=== PATIENT | female | born 1985 | race American Indian/Alaskan Native ===

== ENCOUNTER 2019-06-17 16:55 | Emergency (ER) | payer OTHER ==
[2019-06-17] MEDS ORDERED: ACETAMINOPHEN 500 MG TAB PO ONE (18:42)
[2019-06-17] MEDS ORDERED: AMOXICILLIN/K CLAV 875/125MG TAB PO ONE (18:42)
--- NOTE | 2019-06-17 19:43 | Emergency Department Report ---
ED General Adult HPI - General Chief complaint: Dental/Oral Stated complaint: TOOTHACHE Source: patient Mode of arrival: Ambulatory Limitations: No Limitations - History of Present Illness Initial comments: Patient is a 34 yo AA female who is approximately 33 weeks gestation who presents to the ED with c/o acute onset persistent severe painful swollen right maxillary gums and premolar and molar toothache for the last 3 days. Patient denies dyspnea, fever, chills, cough, sore throat, dizziness, nausea, vomiting, chest pain, abdominal pain or vaginal bleeding. MD Complaint: right maxillary swollen gums; painful maxillary premolar/molar toothache -: Sudden, days(s) (3) Location: mouth Radiation: non-radiation Severity scale (0 -10): 7 Quality: aching, sharp Consistency: constant Improves with: none Worsens with: none Associated Symptoms: denies other symptoms, loss of appetite. denies: confusion, chest pain, cough, fever/chills, headaches, malaise, seizure Treatments Prior to Arrival: none - Related Data Previous Rx's Medication Instructions Recorded Last Taken Type Acetaminophen/Codeine [Tylenol 1 tab PO Q6H PRN #12 tab 06/17/19 Unknown Rx /Codeine # 3 tab] Clindamycin [Clindamycin CAP] 300 mg PO Q8HR #60 capsule 06/17/19 Unknown Rx Allergies Allergy/AdvReac Type Severity Reaction Status Date / Time No Known Allergies Allergy Verified 06/17/19 16:57 ED Review of Systems ROS: Stated complaint: TOOTHACHE Other details as noted in HPI Constitutional: denies: chills, fever Eyes: denies: eye pain, eye discharge, vision change ENT: dental pain, congestion, other (swollen gums). denies: ear pain, throat pain Respiratory: denies: cough, shortness of breath, wheezing Cardiovascular: denies: chest pain, palpitations, dyspnea on exertion, syncope Endocrine: no symptoms reported Gastrointestinal: denies: abdominal pain, nausea, diarrhea Genitourinary: denies: urgency, dysuria, discharge Musculoskeletal: denies: back pain, joint swelling, arthralgia Skin: denies: rash, lesions Neurological: denies: headache, weakness, paresthesias Psychiatric: denies: anxiety, depression Hematological/Lymphatic: denies: easy bleeding, easy bruising ED Past Medical Hx - Past Medical History Previous Medical History?: No - Surgical History Past Surgical History?: No - Social History Smoking Status: Never Smoker Substance Use Type: None - Medications Home Medications: Home Medications Medication Instructions Recorded Confirmed Last Taken Type Acetaminophen/Codeine [Tylenol 1 tab PO Q6H PRN #12 tab 06/17/19 Unknown Rx /Codeine # 3 tab] Clindamycin [Clindamycin CAP] 300 mg PO Q8HR #60 capsule 06/17/19 Unknown Rx ED Physical Exam - General Limitations: No Limitations General appearance: alert, in no apparent distress - Head Head exam: Present: atraumatic, normocephalic, normal inspection - Eye Eye exam: Present: normal appearance. Absent: PERRL, EOMI, scleral icterus, periorbital swelling, periorbital tenderness Pupils: Present: normal accommodation - ENT ENT exam: Present: mucous membranes moist, TM's normal bilaterally, normal external ear exam, other (Swollen severely tender right maxillary gums with severe premolar and molar teeth tenderness) - Neck Neck exam: Present: normal inspection, full ROM, lymphadenopathy. Absent: tenderness - Respiratory Respiratory exam: Present: normal lung sounds bilaterally. Absent: respiratory distress, wheezes, rales, stridor, chest wall tenderness, accessory muscle use - Cardiovascular Cardiovascular Exam: Present: normal rhythm, tachycardia, normal heart sounds. Absent: systolic murmur, diastolic murmur, rubs, gallop - GI/Abdominal GI/Abdominal exam: Present: soft, normal bowel sounds. Absent: tenderness, guarding, rebound, hyperactive bowel sounds, hypoactive bowel sounds, mass - Extremities Exam Extremities exam: Present: normal inspection, full ROM, normal capillary refill - Back Exam Back exam: Present: normal inspection, full ROM. Absent: tenderness, CVA ten derness (L), muscle spasm, paraspinal tenderness - Neurological Exam Neurological exam: Present: alert, oriented X3, CN II-XII intact, normal gait, reflexes normal - Psychiatric Psychiatric exam: Present: normal affect, normal mood - Skin Skin exam: Present: warm, dry, intact, normal color. Absent: rash ED Course Vital Signs 06/17/19 06/17/19 17:49 20:02 Temperature 99 F 98.5 F Pulse Rate 114 H 102 H Respiratory 16 16 Rate Blood Pressure 146/67 135/89 [Left] O2 Sat by Pulse 97 97 Oximetry - Reevaluation(s) Reevaluation #1: 11/04/19 19:50 Patient is alert and oriented x 3 and is in no acute distress, but tachycardic in triage. Patient treated for pain and also given oral antibiotics in the ED. Patient is 33 weeks gestation. Patient discharged home on pain medications and oral antibiotics and advised to follow up with her PCP or dentist in 7-10 days for reevaluation, or return to the ED immediately if symptoms get worse. ED Medical Decision Making - Medical Decision Making Patient is alert and oriented x 3 and is in no acute distress, but tachycardic in triage. Patient treated for pain and also given oral antibiotics in the ED. Patient is 33 weeks gestation. Patient discharged home on pain medications and oral antibiotics and advised to follow up with her PCP or dentist in 7-10 days for reevaluation, or return to the ED immediately if symptoms get worse. 06/17/19 19:51 - Differential Diagnosis dental abscess; dental caries; Acute gingivitis Critical care attestation.: If time is entered above; I have spent that time in minutes in the direct care of this critically ill patient, excluding procedure time. ED Disposition Clinical Impression: Dental abscess, Dental caries, Acute gingivitis Disposition: TO HOME OR SELFCARE Is pt being admited?: No Does the pt Need Aspirin: No Condition: Stable Instructions: Dental Abscess (ED), Dental Caries (ED), Gingivitis (ED) Additional Instructions: Take medications with food, drink plenty of fluids, and follow up with your [facility] [employer] or Dentist in 7-10 days for reevaluation. Return to the ED immediately if symptoms get worse Prescriptions: Clindamycin [Clindamycin CAP] 300 mg PO Q8HR #60 capsule Acetaminophen/Codeine [Tylenol /Codeine # 3 tab] 1 tab PO Q6H PRN #12 tab PRN Reason: Pain , Severe (7-10) Referrals: [facility] [Outside] - 3-5 Days Time of Disposition: 19:43 Print Language: CHADIAN
[2019-06-17 20:03] VITALS: BP 135/89
== END 2019-06-17 20:00 | disposition home or self-care (01) ==
LOC: ED 16:55
DX: O99.613 Diseases of the digestive system complicating pregnancy, third trimester (principal); K92.9 Disease of digestive system, unspecified; Z3A.33 33 weeks gestation of pregnancy; K02.9 Dental caries, unspecified; K04.7 Periapical abscess without sinus; K05.00 Acute gingivitis, plaque induced
CPT/HCPCS: 99282